=== PATIENT | female | born 1975 | race Caucasian/White ===

== ENCOUNTER 2019-04-12 07:59 | Observation (INO) | payer OTHER ==
[2019-04-12 08:36] LABS: % EOSINOPHILS 2.6 % (0.0-5.0); % LYMPHOCYTES 34.1 % (20.0-50.0); % MONOCYTES 6.4 % (2.0-10.0); % NEUTROPHILS 55.9 % (40.0-80.0); BASOPHILE ABSOLUTE 0.1 Th/cumm (0-0.2); EOSINOPHILE ABSOLUTE 0.2 Th/cmm (0.1-0.4); HEMATOCRIT 39.4 % (41.0-60); HEMOGLOBIN 13.2 gm/dL (12-16); LYMPHOCYTE ABSOLUTE 2.9 Th/cmm (1.5-3.0); MEAN CELL VOLUME 93.1 fl (81-100); MEAN CORPUSCULAR HEMOGLOBIN 31.1 pg (27.0-31.0); MEAN CORPUSCULAR HGB CONC 33.5 pg (28.0-36.0); MONOCYTE ABSOLUTE 0.5 Th/cmm (0.3-1.0); NEUTROPHILE ABSOLUTE 4.7 Th/cmm (1.8-8.0); PLATELET COUNT 363 Th/cmm (150-400); RED BLOOD COUNT 4.23 Mil/cmm (3.80-5.10); RED CELL DISTRIBUTION WIDTH 12.7 % (11.5-20.0); WHITE BLOOD COUNT 8.4 Th/cmm (4.8-10.8)
[2019-04-12 08:40] LABS: URINE SOURCE CLEAN C
[2019-04-12 08:41] LABS: INR 0.92 (0.5-1.4)
[2019-04-12 08:42] LABS: URINE BILIRUBIN NEGATIVE (NEGATIVE); URINE BLOOD TRACE (NEGATIVE); URINE GLUCOSE (UA) NEGATIVE (NEGATIVE); URINE KETONE NEGATIVE (NEGATIVE); URINE LEUKOCYTE ESTERASE MODERATE (NEGATIVE); URINE MICROSCOPIC INDICATED? YES; URINE NITRATE NEGATIVE (NEGATIVE); URINE PH 6.5 (4.6 - 8.0); URINE PROTEIN NEGATIVE (NEGATIVE); URINE UROBILINOGEN 0.2 E.U./dL (0.2 - 1.0)
[2019-04-12 08:45] LABS: URINE COLOR YELLOW
[2019-04-12 08:46] LABS: URINE CLARITY HAZY (CLEAR)
[2019-04-12 08:49] LABS: ALB/GLOB RATIO 1.3 (1.0-1.8); ALKALINE PHOSPHATASE 38 U/L (34-104); ANION GAP 12.1 (7.0-16.0); BILIRUBIN,TOTAL 0.4 mg/dL (0.3-1.0); BUN - UREA NITROGEN 15 mg/dL (7-25); CALCIUM SERUM 9.2 mg/dL (8.6-10.3); CARBON DIOXIDE 22.8 mEq/L (21.0-31.0); CHLORIDE 104 mEq/L (98-107); CHOLESTEROL 183 mg/dL (<200); CREATININE - SERUM 0.6 mg/dL (0.6-1.2); CREATININE KINASE 41 U/L (30-223); GFR AFRICAN-AMERICAN > 60.0 ml/min (>90); GFR NON AFRICAN-AMERICAN > 60.0 ml/min; GLUCOSE 89 mg/dL (70-105); HDL -HIGH DENSITY LIPOPROTEIN 54 mg/dL (23-92); POTASSIUM SERUM 3.9 mEq/L (3.5-5.1); SGOT 15 U/L (13-39); SGPT/ALT 13 U/L (7-52); SODIUM SERUM 135 mEq/L (136-145); TOTAL PROTEIN,SERUM 7.1 gm/dL (6.0-8.3); TRIGLYCERIDES 134 mg/dL (<150)
[2019-04-12 08:50] LABS: URINE BACTERIA FEW /hpf (NONE SEEN); URINE EPITHELIAL CELLS MODERATE /lpf (FEW); URINE RBC 0-2 /hpf (0-5)
[2019-04-12 08:59] LABS: DDIMER QUANT 100 ng/mL (100-400)
[2019-04-12] MEDS ORDERED: Aspirin 81mg Chewable Tab ONE (09:21)
[2019-04-12] MEDS: Aspirin 81mg Chewable Tab PO STA (09:24)
[2019-04-12] MEDS: cefTRIAXone 1 GM in Sodium Chloride 0.9% 50 ML IV ONE (09:35)
--- NOTE | 2019-04-12 10:02 | ED Physician Chart ---
ED Chief Complaint/HPI - Patient Information Date Seen:: 04/12/19 Time Seen:: 08:00 Chief Complaint:: Chest Pain History of Present Illness:: onset x 3 days of intermittent, localized bilateral exertional and pleuritic Chest pain; pt denies trauma, H/As, S/T, neck pain, SOB, Abd. Pain, A/N/V/D/C, fever, chills, or urinary s/s Allergies:: Allergies Allergy/AdvReac Type Severity Reaction Status Date / Time acetaminophen [From Tylenol] Allergy Mild Verified 04/12/19 08:21 Vitals:: Vital Signs - 8 hr 04/12/19 04/12/19 08:03 08:30 Temp 97 F 97.2 F HR 75 73 RR 18 18 BP 99/66 108/64 O2 Sat % 99 98 Historian:: Patient, Family Member Review:: Nurse's Note Reviewed, Old Chart Reviewed ED Review of Systems - Review of Systems General/Constitutional: No fever, No chills, No weight loss, No weakness, No diaphoresis, No edema, No loss of appetite Skin: No skin lesions, No rash, No bruising Head: No headache, No light-headedness Eyes: No loss of vision, No pain, No diplopia ENT: No earache, No nasal drainage, No sore throat, No tinnitus Neck: No neck pain, No swelling, No thyromegaly, No stiffness, No mass noted Cardio Vascular: No chest pain, No palpitations, No PND, No orthopnea, No edema Pulmonary: No SOB, No cough, No sputum, No wheezing GI: No nausea, No vomiting, No diarrhea, No pain, No melena, No hematochezia, No constipation, No hematemesis G/U: No dysuria, No frequency, No hematuria, No nacturia Maintenance Representative: No vaginal discharge, No abnormal vaginal bleed, No contraction Musculoskeletal: No bone or joint pain, No back pain, No muscle pain Endocrine: No polyuria, No polydipsia Psychiatric: No prior psych history, No depression, No anxiety, No suicidal ideation, No homicidal ideation, No auditory hallucination, No visual hallucination Hematopoietic: No bruising, No lymphadenopathy Allergic/Immuno: No urticaria, No angioedema Neurological: No syncope, No focal symptoms, No weakness, No paresthesia, No headache, No seizure, No dizziness, No confusion, No vertigo ED Past Medical History - Past Medical History Obtainable: Yes Past Medical History: No significant medical hx Family History: None Social History: Non Smoker, No Alcohol, No Drug Use, Surgical History: None Psychiatricy History: None Medication: Reviewed Family Medical History - Family Member Mother History Unknown: Yes ED Physical Exam - Physical Examination General/Constitutional: Awake, Well-developed, well-nourished, Alert, No distress, GCS 15, Non-toxic appearing, Ambulatory Head: Atraumatic Eyes: Lids, conjuctiva normal, PERRL, EOMI Skin: Nl inspection, No rash, No skin lesions, No ecchymosis, Well hydrated, No lymphadenopathy ENMT: External ears, nose nl, TM canals nl, Nasal exam nl, Lips, teeth, gums nl , Oropharynx nl, Tonsils nl Neck: Nontender, Full ROM w/o pain, No JVD, No nuchal rigidity, No bruit, No mass, No stridor Respiratory: Nl effort/Exclusion, Clear to Auscultation, No Wheeze/Rhonchi/Rales Cardio Vascular: RRR, No murmur, gallop, rubs, NL S1 S2, Carotid/Femoral/Distal pulses equal bilaterally GI: No tenderness/rebounding/guarding, No organomegaly, No hernia, Normal BS's, Nondistended, No mass/bruits, No McBurney tenderness : No CVA tenderness Extremities: No tenderness or effusion, Full ROM, normal strength in all extremities, No edema, Normal digits & nails Neuro/Psych: Alert/oriented, DTR's symmetric, Normal sensory exam, Normal motor strength, Judgement/insight normal, Mood normal, Normal gait, No focal deficits Misc: Normal back, No paraspinal tenderness ED Labs/Radiology/EKG Results - Lab Results Results: Laboratory Tests 04/12/19 04/12/19 04/12/19 08:00 08:18 08:18 WBC 8.4 RBC 4.23 Hgb 13.2 Hct 39.4 L MCV 93.1 MCH 31.1 H MCHC Differential 33.5 RDW 12.7 Plt Count 363 MPV 8.3 Neutrophils % 55.9 Lymphocytes % 34.1 Monocytes % 6.4 Eosinophils % 2.6 Basophils % 1.0 PT 9.6 INR 0.92 D-Dimer Sodium Potassium Chloride Carbon Dioxide Anion Gap BUN Creatinine Est GFR ( Amer) Est GFR (Non-Af Amer) BUN/Creatinine Ratio Glucose Calcium Total Bilirubin AST ALT Alkaline Phosphatase Creatine Kinase Troponin I B-Natriuretic Peptide Total Protein Albumin Globulin Albumin/Globulin Ratio Triglycerides Cholesterol LDL Cholesterol Direct HDL Cholesterol Serum , Qual Urine Source CLEAN C Urine Color YELLOW Urine Clarity HAZY Urine pH 6.5 Ur Specific [place] 1.010 Urine Protein NEGATIVE Urine Glucose (UA) NEGATIVE Urine Ketones NEGATIVE Urine Blood TRACE Urine Nitrate NEGATIVE Urine Bilirubin NEGATIVE Urine Urobilinogen 0.2 Ur Leukocyte Esterase MODERATE H Urine RBC 0-2 Urine WBC 10-25 H Ur Epithelial Cells MODERATE Urine Bacteria FEW POC Ur Test 04/12/19 04/12/19 04/12/19 08:18 08:18 08:18 WBC RBC Hgb Hct MCV MCH MCHC Differential RDW Plt Count MPV Neutrophils % Lymphocytes % Monocytes % Eosinophils % Basophils % PT INR D-Dimer 100 Sodium 135 L Potassium 3.9 Chloride 104 Carbon Dioxide 22.8 Anion Gap 12.1 BUN 15 Creatinine 0.6 Est GFR ( Amer) > 60.0 Est GFR (Non-Af Amer) > 60.0 BUN/Creatinine Ratio 25.0 Glucose 89 Calcium 9.2 Total Bilirubin 0.4 AST 15 ALT 13 Alkaline Phosphatase 38 Creatine Kinase 41 Troponin I < 0.01 L B-Natriuretic Peptide 11.7 Total Protein 7.1 Albumin 4.0 Globulin 3.1 Albumin/Globulin Ratio 1.3 Triglycerides 134 Cholesterol 183 LDL Cholesterol Direct 122 HDL Cholesterol 54 Serum , Qual Urine Source Urine Color Urine Clarity Urine pH Ur Specific [place] Urine Protein Urine Glucose (UA) Urine Ketones Urine Blood Urine Nitrate Urine Bilirubin Urine Urobilinogen Ur Leukocyte Esterase Urine RBC Urine WBC Ur Epithelial Cells Urine Bacteria POC Ur Test 04/12/19 04/12/19 08:18 08:20 WBC RBC Hgb Hct MCV MCH MCHC Differential RDW Plt Count MPV Neutrophils % Lymphocytes % Monocytes % Eosinophils % Basophils % PT INR D-Dimer Sodium Potassium Chloride Carbon Dioxide Anion Gap BUN Creatinine Est GFR ( Amer) Est GFR (Non-Af Amer) BUN/Creatinine Ratio Glucose Calcium Total Bilirubin AST ALT Alkaline Phosphatase Creatine Kinase Troponin I B-Natriuretic Peptide Total Protein Albumin Globulin Albumin/Globulin Ratio Triglycerides Cholesterol LDL Cholesterol Direct HDL Cholesterol Serum , Qual NEGATIVE Urine Source Urine Color Urine Clarity Urine pH Ur Specific [place] Urine Protein Urine Glucose (UA) Urine Ketones Urine Blood Urine Nitrate Urine Bilirubin Urine Urobilinogen Ur Leukocyte Esterase Urine RBC Urine WBC Ur Epithelial Cells Urine Bacteria POC Ur Test Negative Comments:: Reviewed - Radiology Results Comments:: NAD - EKG Interpretations EKG Time:: 08:20 Rate & Rhythm: 74; NSR Comments:: T-Wave Inversions; non-specific st-t changes ED Septic Shock - . Is Septic Shock (SBP<90, OR Lactate>4 mmol\L) present?: No - <6hrs of presentation: Vital Signs: Vital Signs - 8 hr 04/12/19 04/12/19 08:03 08:30 Temp 97 F 97.2 F HR 75 73 RR 18 18 BP 99/66 108/64 O2 Sat % 99 98 ED Reassessment (Disposition) - Reassessment Reassessment Condition:: Improved - Diagnosis Diagnosis:: Chest Pain; Angina Pectoris; Myocardial Ischemia; UTI; Hyponatremia; Pleuritis - Aftercare/Follow up Instructions Aftercare/Follow-Up Instructions:: Counseled pt regarding lab results/diagnosis & need follow up, Counseled pt & family regarding lab results/diagnosis & need follow up - Patient Disposition Discharge/Transfer:: Acute Care w/in this hosp Accepting Physician:: Dr. Mary Short Time Called:: 1000 Time Responded:: 10:00 Admitted to:: Telemetry Spoke to:: Dr. Mary Short Admitting Medical Physician:: Dr. Mary Short Condition at Disposition:: Stable, Improved
--- NOTE | 2019-04-12 10:41 | Diagnostic Imaging Report ---
Chest x-ray single view History: Chest pain Comparison: None The heart size is normal. No focal pulmonary parenchymal processes. No hilar or mediastinal abnormalities. Impression: No acute abnormalities
[2019-04-13 05:10] LABS: % BASOPHILS 0.8 % (0.0-2.0); % EOSINOPHILS 2.6 % (0.0-5.0); % LYMPHOCYTES 40.5 % (20.0-50.0); % MONOCYTES 6.9 % (2.0-10.0); % NEUTROPHILS 49.2 % (40.0-80.0); BASOPHILE ABSOLUTE 0.1 Th/cumm (0-0.2); EOSINOPHILE ABSOLUTE 0.3 Th/cmm (0.1-0.4); HEMATOCRIT 39.4 % (41.0-60); HEMOGLOBIN 13.3 gm/dL (12-16); MEAN CELL VOLUME 94.6 fl (81-100); MEAN CORPUSCULAR HGB CONC 33.8 pg (28.0-36.0); MONOCYTE ABSOLUTE 0.7 Th/cmm (0.3-1.0); NEUTROPHILE ABSOLUTE 4.7 Th/cmm (1.8-8.0); PLATELET COUNT 354 Th/cmm (150-400); RED BLOOD COUNT 4.17 Mil/cmm (3.80-5.10); RED CELL DISTRIBUTION WIDTH 12.8 % (11.5-20.0); WHITE BLOOD COUNT 9.8 Th/cmm (4.8-10.8)
[2019-04-13 05:42] LABS: BUN - UREA NITROGEN 17 mg/dL (7-25); CALCIUM SERUM 9.1 mg/dL (8.6-10.3); CARBON DIOXIDE 20.7 mEq/L (21.0-31.0); CHLORIDE 104 mEq/L (98-107); CHOLESTEROL 182 mg/dL (<200); CREATININE - SERUM 0.7 mg/dL (0.6-1.2); GFR AFRICAN-AMERICAN > 60.0 ml/min (>90); GFR NON AFRICAN-AMERICAN > 60.0 ml/min; GLUCOSE 75 mg/dL (70-105); HDL -HIGH DENSITY LIPOPROTEIN 56 mg/dL (23-92); MAGNESIUM 2.3 mg/dL (1.9-2.7); POTASSIUM SERUM 3.7 mEq/L (3.5-5.1); SODIUM SERUM 136 mEq/L (136-145); TRIGLYCERIDES 89 mg/dL (<150)
[2019-04-13] MEDS: Morphine Sulfate 2 mg/mL 1mL Syr IV PRN (07:32)
[2019-04-13] MEDS: cefTRIAXone 1 GM in Sodium Chloride 0.9% 50 ML IV SCH (09:26)
--- NOTE | 2019-04-13 10:04 | History and Physical ---
History of Present Illness - HPI Chief Complaint: 44 y/o female patient was brought into ER due to complaints of chest pain. HPI: 44 y/o female patient was admitted to [facility] due to complaints of onset x 3 days of intermittent, localized bilateral exetrional and pleuritic chest pain. Patient has no past medical history. Patient had an ER assessment and a complete workup was done. Patient had a chest x-ray done which showed no acute abnormalities. Patient was diagnosed with Chest pain, Angina Pectoris, Mycardial Ischemi, UTI, Hyponatremia and Pleuritis. Patient will have Cardiology consult and I will follow patient. Patient will be treated and monitored. Patient will continue current treatment plan as ordered. Vital Signs: Last Vital Signs Temp 96.6 F 04/13/19 08:00 Pulse 72 04/13/19 08:00 Resp 18 04/13/19 08:00 BP 104/75 04/13/19 08:00 Pulse Ox 100 04/13/19 08:00 Past Medical History Cardiovascular: Report: No Pertinent Hx Pulmonary: Report: No Pertinent Hx OYSTER CULLER: Report: No Pertinent Hx GI: Report: No Pertinent Hx Psych: Report: No Pertinent Hx Musculoskeletal: Report: No Pertinent Hx Rheumatologic: Report: No pertinent Hx Infectious Disease: Report: No Pertinent Hx Renal/: Report: No Pertinent Hx Endocrine: Report: No Pertinent Hx Dermatology: Report: No Pertinent Hx - Past Surgical History Past Surgical History: No pertinent Hx Family Medical History - Family Member Mother History Unknown: Yes Social History Smoke: No Alcohol: None Drugs: None Lives: With Family Domestic Violence: Negative Health Maintenance Health Maintenance: Other (see chart.) - Medications Home Medications: Home Medication Medication Instructions Recorded Type NK [No Home Meds] 04/12/19 History Other Medications: please see medication reconciliation sheet. - Allergies Allergies/Adverse Reactions: Allergies Allergy/AdvReac Type Severity Reaction Status Date / Time acetaminophen [From Tylenol] Allergy Mild Verified 04/12/19 08:21 Review of Systems - Review of Systems Review of Systems: patient c/o chest pain. Constitutional: Report: No Significant Eyes: Report: No Significant ENT: Report: No Significant Respiratory: Report: No Significant Cardiovascular: Report: Chest Pain Gastrointestinal: Report: No Significant Genitourinary: Report: No Significant Musculoskeletal: Report: No Significant Skin: Report: No Significant Neurological: Report: No Significant Physical Exam - Physical Exam HEENT: Report: Ears Nose Throat within normal limits Neck: Report: Within normal limits Cardiovascular Systems: Report: Other (Chest pin.) Respiratory: Report: Breath Sounds are within normal limits Abdomen: Report: Non-tender to palpation Back: Report: Inspection of back is within normal limits. Extremities: Report: Non-tender to palpation. Skin: Report: Color of skin is within normal limits Neuro/Psych: Report: Mood affect is within normal limits - Lab Results All Lab Results last 24 hours: Laboratory Results - last 24 hr 04/12/19 04/12/19 04/13/19 08:18 17:00 01:00 WBC RBC Hgb Hct MCV MCH MCHC Differential RDW Plt Count MPV Neutrophils % Lymphocytes % Monocytes % Eosinophils % Basophils % Sodium Potassium Chloride Carbon Dioxide Anion Gap BUN Creatinine Est GFR ( Amer) Est GFR (Non-Af Amer) BUN/Creatinine Ratio Glucose Calcium Magnesium Troponin I < 0.01 L < 0.01 L B-Natriuretic Peptide Cancelled Triglycerides Cholesterol LDL Cholesterol Direct HDL Cholesterol TSH 04/13/19 04/13/19 04/13/19 04:45 04:45 04:45 WBC 9.8 RBC 4.17 Hgb 13.3 Hct 39.4 L MCV 94.6 MCH 32.0 H MCHC Differential 33.8 RDW 12.8 Plt Count 354 MPV 9.0 Neutrophils % 49.2 Lymphocytes % 40.5 Monocytes % 6.9 Eosinophils % 2.6 Basophils % 0.8 Sodium 136 Potassium 3.7 Chloride 104 Carbon Dioxide 20.7 L Anion Gap 15.0 BUN 17 Creatinine 0.7 Est GFR ( Amer) > 60.0 Est GFR (Non-Af Amer) > 60.0 BUN/Creatinine Ratio 24.3 Glucose 75 Calcium 9.1 Magnesium 2.3 Troponin I B-Natriuretic Peptide Triglycerides 89 Cholesterol 182 LDL Cholesterol Direct 122 HDL Cholesterol 56 TSH 2.82 - Assessment Assessment: Chest pain. Angina Pectoris. Mycardial Ischemia. UTI. Hyponatremia. Pleuritis. - Plan Plan: Continuation of care. Cardiology consult. Monitor Vitals and Labs. Continue present meds as directed. Monitor Diet/Nutritional support. Pain Management. Fall precaution. Supportive care. Continue collaborating with consulting specialists, case management and nursing team. Will Monitor patient and continue current treatment plan as ordered.
--- NOTE | 2019-04-13 14:53 | General Progress Note ---
Subjective - Review of Systems Service Date: 04/13/19 Subjective: Agents has chest pain increases with deep breathing and movement Objective - Results Result Diagrams: 04/13/19 04:45 04/13/19 04:45 Recent Labs: Laboratory Last Values WBC 9.8 Th/cmm (4.8-10.8) 04/13/19 04:45 RBC 4.17 Mil/cmm (3.80-5.10) 04/13/19 04:45 Hgb 13.3 gm/dL (12-16) 04/13/19 04:45 Hct 39.4 % (41.0-60) L 04/13/19 04:45 MCV 94.6 fl (81-100) 04/13/19 04:45 MCH 32.0 pg (27.0-31.0) H 04/13/19 04:45 MCHC Differential 33.8 pg (28.0-36.0) 04/13/19 04:45 RDW 12.8 % (11.5-20.0) 04/13/19 04:45 Plt Count 354 Th/cmm (150-400) 04/13/19 04:45 MPV 9.0 fl 04/13/19 04:45 Neutrophils % 49.2 % (40.0-80.0) 04/13/19 04:45 Lymphocytes % 40.5 % (20.0-50.0) 04/13/19 04:45 Monocytes % 6.9 % (2.0-10.0) 04/13/19 04:45 Eosinophils % 2.6 % (0.0-5.0) 04/13/19 04:45 Basophils % 0.8 % (0.0-2.0) 04/13/19 04:45 PT 9.6 SECONDS (9.5-11.5) 04/12/19 08:18 INR 0.92 (0.5-1.4) 04/12/19 08:18 D-Dimer 100 ng/mL (100-400) 04/12/19 08:18 Sodium 136 mEq/L (136-145) 04/13/19 04:45 Potassium 3.7 mEq/L (3.5-5.1) 04/13/19 04:45 Chloride 104 mEq/L (98-107) 04/13/19 04:45 Carbon Dioxide 20.7 mEq/L (21.0-31.0) L 04/13/19 04:45 Anion Gap 15.0 (7.0-16.0) 04/13/19 04:45 BUN 17 mg/dL (7-25) 04/13/19 04:45 Creatinine 0.7 mg/dL (0.6-1.2) 04/13/19 04:45 Est GFR ( Amer) > 60.0 ml/min (>90) 04/13/19 04:45 Est GFR (Non-Af Amer) > 60.0 ml/min 04/13/19 04:45 BUN/Creatinine Ratio 24.3 04/13/19 04:45 Glucose 75 mg/dL (70-105) 04/13/19 04:45 Calcium 9.1 mg/dL (8.6-10.3) 04/13/19 04:45 Magnesium 2.3 mg/dL (1.9-2.7) 04/13/19 04:45 Total Bilirubin 0.4 mg/dL (0.3-1.0) 04/12/19 08:18 AST 15 U/L (13-39) 04/12/19 08:18 ALT 13 U/L (7-52) 04/12/19 08:18 Alkaline Phosphatase 38 U/L (34-104) 04/12/19 08:18 Creatine Kinase 41 U/L (30-223) 04/12/19 08:18 Troponin I < 0.01 ng/mL (0.01-0.05) L 04/13/19 01:00 B-Natriuretic Peptide Cancelled 04/12/19 08:18 Total Protein 7.1 gm/dL (6.0-8.3) 04/12/19 08:18 Albumin 4.0 gm/dL (3.7-5.3) 04/12/19 08:18 Globulin 3.1 gm/dL 04/12/19 08:18 Albumin/Globulin Ratio 1.3 (1.0-1.8) 04/12/19 08:18 Triglycerides 89 mg/dL (<150) 04/13/19 04:45 Cholesterol 182 mg/dL (<200) 04/13/19 04:45 LDL Cholesterol Direct 122 mg/dL (75-193) 04/13/19 04:45 HDL Cholesterol 56 mg/dL (23-92) 04/13/19 04:45 TSH 2.82 uIU/ml (0.34-5.60) 04/13/19 04:45 Serum , Qual NEGATIVE (NEGATIVE) 04/12/19 08:18 Urine Source CLEAN C 04/12/19 08:00 Urine Color YELLOW 04/12/19 08:00 Urine Clarity HAZY (CLEAR) 04/12/19 08:00 Urine pH 6.5 (4.6 - 8.0) 04/12/19 08:00 Ur Specific [place] 1.010 (1.005-1.030) 04/12/19 08:00 Urine Protein NEGATIVE mg/dL (NEGATIVE) 04/12/19 08:00 Urine Glucose (UA) NEGATIVE mg/dL (NEGATIVE) 04/12/19 08:00 Urine Ketones NEGATIVE mg/dL (NEGATIVE) 04/12/19 08:00 Urine Blood TRACE (NEGATIVE) 04/12/19 08:00 Urine Nitrate NEGATIVE (NEGATIVE) 04/12/19 08:00 Urine Bilirubin NEGATIVE (NEGATIVE) 04/12/19 08:00 Urine Urobilinogen 0.2 E.U./dL (0.2 - 1.0) 04/12/19 08:00 Ur Leukocyte Esterase MODERATE (NEGATIVE) H 04/12/19 08:00 Urine RBC 0-2 /hpf (0-5) 04/12/19 08:00 Urine WBC 10-25 /hpf (0-5) H 04/12/19 08:00 Ur Epithelial Cells MODERATE /lpf (FEW) 04/12/19 08:00 Urine Bacteria FEW /hpf (NONE SEEN) 04/12/19 08:00 POC Ur Test Negative 04/12/19 08:20 - Physical Exam Vitals and I&O: Vital Signs Temp 97.1 F 04/13/19 11:00 Pulse 79 04/13/19 11:00 Resp 18 04/13/19 11:00 BP 106/70 04/13/19 11:00 Pulse Ox 96 04/13/19 11:00 Intake & Output 04/12/19 04/13/19 04/13/19 18:59 06:59 18:59 Intake Total 300 Balance 300 Weight (lbs) 72.575 kg Intake: Oral 300 Other: # Voids 2 Weight Source Bedscale Active Medications: Current Medications Ceftriaxone Sodium 1 gm/ (Sodium Chloride) 50 mls @ 100 mls/hr IV Q24HR ELIE Stop: 06/12/19 08:59 Last Admin: 04/13/19 09:26 Dose: 100 mls/hr Morphine Sulfate (Morphine) 2 mg IV Q4H PRN PRN Reason: Pain (Severe) Stop: 06/11/19 12:59 Last Admin: 04/13/19 07:32 Dose: 2 mg General: Alert, No acute distress HEENT: Mucous membr. moist/pink Neck: Supple, JVD, +2 carotid pulse wo bruit (flat) Cardiovascular: Regular rate, Normal S1, Normal S2, Systolic murmurs Lungs: Clear to auscultation, Normal air movement Abdomen: Bowel sounds, Soft, Other Extremities: Pulses (organomegaly) Neurological: Normal gait, Normal speech, Strength at 5/5 X4 ext, Normal tone, Cranial nerves 3-12 NL, Reflexes 2+ Assessment/Plan - Assessment Assessment: Chest pain Echocardiogram showed ejection fraction 65% mild mitral regurgitation mild tricuspid regurgitation right ventricular systolic pressure 27 mmHg - Plan Plan: Cardiac status stable chest pain unlikely coronary artery disease
--- NOTE | 2019-04-13 15:54 | Cardiology ---
04/12/2019 ECHOCARDIOGRAM REPORT PATIENT OF: Dr. Lo. M-MODE ECHOCARDIOGRAM: Mitral valve, anterior leaflet of mitral valve shows normal excursion, EF velocity. Posterior leaflet of mitral valve shows normal excursion. Left ventricle posterior wall shows increased thickness, normal excursion. Interventricular septum shows increased thickness, normal excursion. There is hypertrophy of the left ventricle, ejection fraction 55%. Left atrium normal. Aortic root shows normal dimension, normal excursion of aortic leaflets. CONCLUSION: Hypertrophy of the left ventricle, ejection fraction 65%. 2D ECHO: Long axis view showed normal sized left ventricle with hypertrophy of the left ventricle. Left atrium normal. Aortic root shows normal dimension, normal excursion of aortic leaflets. Short axis view of mitral valve normal. Short axis view of aortic valve normal. Apical four chamber view showed normal sized left ventricle, left atrium, right ventricle, right atrium, tricuspid and mitral valve. Ejection fraction 65%. CONCLUSION: 2D echo, ejection fraction 65%, hypertrophy of the left ventricle. Doppler study shows mild mitral regurgitation, mild tricuspid regurgitation, right ventricular systolic pressure 27 mmHg. [facility]# [id number]
--- NOTE | 2019-04-13 18:41 | Cardiology ---
04/12/2019 M-MODE ECHOCARDIOGRAM: Mitral valve: Anterior leaflet of mitral valve shows normal excursion, EF velocity. Posterior leaflet of the mitral valve shows normal excursion. Left ventricular posterior wall shows increased thickness, normal excursion. Interventricular septum shows increased thickness, normal excursion. There is hypertrophy of the left ventricle, ejection fraction 55%. Left atrium normal. DICTATIONS ENDS HERE JOB# [id number]
--- NOTE | 2019-04-13 22:45 | Consultation ---
DATE OF CONSULTATION: 04/13/2019 PATIENT OF: Dr. Lo HISTORY OF PRESENT ILLNESS: This is a 44-year-old female patient who has been going to the gym for exercise. The patient at the present time started complaining of pain in the right shoulder 2 days ago and radiating to the right arm followed by pain in the chest, increased with deep breathing and movement and the patient came to the Emergency Room and the patient is admitted. PAST MEDICAL HISTORY: Unremarkable. FAMILY HISTORY: Unremarkable. SOCIAL HISTORY: No history of smoking, alcohol abuse. ALLERGIES: None. PHYSICAL EXAMINATION: VITAL SIGNS: Blood pressure 104/70, pulse 70, respirations 20. HEAD: Normocephalic. No lumps or bumps. EYES: Pupils equal, reactive to light. Fundi show AV nicking, sclerae white, conjunctivae pink. NECK: Carotid 2+. Normal upstroke. JVD flat. Thyroid not palpable. Lymph nodes not palpable. CHEST: Shows increased AP diameter. No kyphosis, scoliosis. LUNGS: Bilateral bronchovesicular breath sounds. HEART: PMI fifth intercostal space with lateral to midclavicular line. S1, S2. No S3, S4, soft systolic murmur. ABDOMEN: Soft. Liver, spleen not palpable. No organomegaly. Bowel sounds active. NEUROLOGIC: Unremarkable. EXTREMITIES: Peripheral pulses 2+. No pedal edema. The patient's troponin level normal. EKG unremarkable. CLINICAL IMPRESSION: Chest pain, unlikely coronary artery disease, probably from musculoskeletal pain. PLAN: The patient to get troponin level, EKG, echocardiogram. [facility]# [id number]
== END 2019-04-13 16:15 | disposition home or self-care (01) ==
LOC: ER 07:59 → TELE 13:06
PROVIDERS: ADMIT Internal Medicine; ATTEND Internal Medicine
DX: I20.9 Angina pectoris, unspecified (principal); I25.9 Chronic ischemic heart disease, unspecified; N39.0 Urinary tract infection, site not specified; E87.1 Hypo-osmolality and hyponatremia
CPT/HCPCS: 99285; 96365; 93005 ×2; 71045; 84484 ×3; 36415 ×2; 85379; 85025 ×2; 85610; 87086; 81001; 82550; 84703; 81025; 80053; 80061 ×2; 87081; 99219 ×28; 96366; 96375; 84443; 83735; 80048; J0696 ×2; J2270; G0378; J7030